=== PATIENT | female | born 1940 | race Caucasian/White ===

== ENCOUNTER 2021-12-01 06:53 | Day surgery (SDC) | payer MEDICARE, BC ==
--- NOTE | 2021-11-25 10:39 | HP ---
DATE OF SURGERY: 12/01/2021 HISTORY OF PRESENT ILLNESS: The patient presented with complaints of epigastric pain and gas. She stated that Prilosec helped a little bit. She stated that she has had some simethicone but then that gave her diarrhea. She complains of some bladder loss of control and some dribbling at times. The patient states the bowel habits have changed. Denies rectal bleeding. Complains of some front pelvic pain right greater than left. She complained of a hernia but no hernia was seen on exam. The patient has a history of hysterectomy and bladder repair, cholecystectomy and hiatal hernia. She had colonoscopy one year ago and had as she stated 20 polyps removed. PAST MEDICAL HISTORY: Thyroid disease, gastroesophageal reflux disease, depression, hyperlipidemia, heart disease, narcolepsy. PAST SURGICAL HISTORY: Tubal ligation. Appendectomy. Bladder repair. Hysterectomy. Cholecystectomy. Hiatal hernia. Bypass from neck to arm. ALLERGIES: VIOXX. CODEINE. LISINOPRIL. NEURONTIN. PLETAL. CLONIDINE. METFORMIN. MEDICATIONS: Levothyroxine, omeprazole, sertraline, amlodipine, atorvastatin, simethicone, FAMILY HISTORY: Heart disease, diabetes, cancer. SOCIAL HISTORY: Negative. REVIEW OF SYSTEMS: CONSTITUTIONAL: Denies fever or chills. CHEST: Denies shortness of breath. CVS: Denies chest pain. ABDOMEN: Reports low pelvic pain. PHYSICAL EXAMINATION: GENERAL: No acute distress. CHEST: Nonlabored. No shortness of breath. CVS: Regular rate and rhythm. ABDOMEN: Soft. IMPRESSION: Epigastric pain, gas, bladder incontinence, history of multiple polypectomies of the colon. PLAN: EGD, colonoscopy and vaginoscopy with Dr. Evelio Colin. As dictated by Ashly Faith NP.
[~2021-12-01 06:53] MED LIST: Lactated Ringers 1,000 ML IV SCH
[2021-12-01] MEDS ORDERED: Lactated Ringers 1,000 ML IV ONE (07:15)
[2021-12-01] MEDS ORDERED: DIPRIVAN 200 MG/20 ML IV ONE ×2 (09:42→10:00)
[2021-12-01] MEDS ORDERED: Xylocaine-Mpf 2% 5 Ml Vial ONE (09:42)
[2021-12-01 10:59] VITALS: PULSE 66
[2021-12-01 11:07] VITALS: BP 160/87; O2SAT 96
--- NOTE | 2021-12-01 11:32 | OP ---
SURGERY DATE/TIME: 12/01/2021 0943 PREOPERATIVE DIAGNOSES: 1) Epigastric pain. 2) Difficulty with bowel movements and bowel movement control. 3) Concern about possible rectovaginal fistula. 4) Concern about possible urinary incontinence also. POSTOPERATIVE DIAGNOSES: 1) Epigastric pain. 2) Difficulty with bowel movements and bowel movement control. 3) Concern about possible rectovaginal fistula. 4) Concern about possible urinary incontinence also. PROCEDURES: 1) EGD. 2) Colonoscopy. 3) Vaginoscopy. SURGEON: Evelio Colin M.D. ANESTHESIA: MAC. COMPLICATIONS: None. CONDITION: Stable. DESCRIPTION OF PROCEDURE: The patient was taken to endoscopy. Left lateral decubitus position. Scope introduced. Pharyngoesophageal junction normal. Esophagus normal down to gastroesophageal junction. The gastroesophageal junction was just a little distorted. It was inspected several times. There was a little bit of gastroesophageal reflux disease grade 2. On review of the chart, she had a previous fundoplasty some 20 years ago and this is certainly what is responsible. I think the wrap is still complete and there is no absolute hiatal hernia. Fundus, body and antrum normal. Pylorus normal. Duodenal bulb normal. Second portion normal. Scope withdrawn looped upon itself. No hiatal hernia from below. Scope withdrawn. Again, light irritation grade 2. The rest of the esophagus is normal. The scope is placed into the vagina. I did not see any pinhole perforations of vaginal cuff as the cuff was fairly short. It did not hold air very well. Anteriorly it is unclear what the status is. Posteriorly I did not get the sense of a tremendous rectocele. The scope was then introduced into the anal rectal area. It was advanced to the cecum. The cecum seems slightly distorted but it was present in the right lower quadrant and I saw nothing gross. Circumferential withdrawal redundant colon. Rectum and anus satisfactory. The patient tolerated the procedure satisfactory. We will see her back in the office to refield her complaints. I did not find much today on exam.
== END 2021-12-01 11:00 | disposition home or self-care (01) ==
LOC: SDC 06:53
PROVIDERS: ATTEND Surgery
DX: R10.13 Epigastric pain (principal); Z86.010 Personal history of colon polyps; R32 Unspecified urinary incontinence; R19.4 Change in bowel habit; Z79.899 Other long term (current) drug therapy; Z86.79 Personal history of other diseases of the circulatory system
CPT/HCPCS: 93005; 99100; J2704

== ENCOUNTER 2022-12-12 12:06 | Emergency (ER) | payer MEDICARE, BC ==
--- NOTE | 2022-12-12 12:59 | ERPHSYRPT ---
- History of Present Illness Source: patient, other (Daughter) Exam Limitations: no limitations Patient Subjective Stated Complaint: Pt states "I had a headache yesterday and some dizziness and it got a little better and now it hurts horribly." Triage Nursing Assessment: PT presented alert and oriented X 3, skin pwd. Pt ambulates with an upright steady gait, able to speak in clear full sentences pt in no apparent respiratory distress. Physician History: 82 yo WF w L retro-orbital headache x 1 day. pain is 8/10 and described as sharp/aching. Pt has a h/o headaches, but this one is a little worse. She has had nausea wo vomiting. Heat on her head and ice on her neck make the pain better. Pain is 8/10 on scale. Scotoma and blurry vision also reported. She denies focal weaknes/chest pain/dyspnea/fever/nuchal rigidity. Timing/Duration: yesterday Quality: burning, sharpness Head Pain Location: frontal (L retro-orbital) Severity of Pain-Max: severe Severity of Pain-Current: severe Recent Head Trauma: no recent headache/trauma, occasional headaches Modifying Factors: Improves With: cold therapy Associated Symptoms: scotoma, visual disturbance Previous symptoms: same symptoms as today Allergies/Adverse Reactions: cephalexin Allergy (Verified 12/01/21 07:59) cilostazol Allergy (Verified 12/01/21 07:59) clonidine Allergy (Verified 12/01/21 07:59) metoprolol Allergy (Verified 12/01/21 07:59) rofecoxib Allergy (Verified 12/01/21 07:59) carvedilol [From Coreg] Adverse Reaction (Verified 12/01/21 07:59) codeine Adverse Reaction (Verified 12/01/21 07:59) duloxetine Adverse Reaction (Verified 12/01/21 07:59) gabapentin Adverse Reaction (Verified 12/01/21 07:59) lisinopril Adverse Reaction (Verified 12/01/21 07:59) metformin Adverse Reaction (Verified 12/01/21 07:59) nifedipine Adverse Reaction (Verified 12/01/21 07:59) pilocarpine Adverse Reaction (Verified 12/01/21 07:59) solriamfetol [From Sunosi] Adverse Reaction (Verified 12/01/21 07:59) Home Medications: Amlodipine Besylate 5 mg [Norvasc 5 mg] 5 mg PO DAILY 11/24/21 [History] Atorvastatin Calcium [Lipitor 20MG Tablet] 20 mg PO DAILY 11/24/21 [History] Levothyroxine Sodium 100 Mcg [Synthroid 100 Mcg] 100 mcg PO DAILY 11/24/21 [History] Omeprazole Magnesium [Prilosec Otc] 40 mg PO DAILY 11/24/21 [History] Sertraline HCl 50 mg [Zoloft 50 mg Tablet] 50 mg PO DAILY 11/24/21 [History] Cholecalciferol (Vitamin D3) [Vitamin D] 1,000 unit PO DAILY 12/01/21 [History] Hx Tetanus, Diphtheria Vaccination/Date Given: No Hx Influenza Vaccination/Date Given: No Hx Pneumococcal Vaccination/Date Given: No Immunizations Up to Date: Yes Travel Risk - International Travel Have you traveled outside of the country in past 3 weeks: No - Coronavirus Screening Are you exhibiting any of the following symptoms?: Yes Symptoms: Headaches/Body Aches/Fatigue Close contact with a COVID-19 positive Pt in past 14-21 Days: No - Vaccine Status Have you recieved a Covid-19 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: [employer] - Vaccination Dates Date of 2cond Vaccination (if applicable): 2020 - Review of Systems Constitutional: No Symptoms Eyes: No Symptoms Ears, Nose, & Throat: No Symptoms Respiratory: No Symptoms Cardiac: No Symptoms Abdominal/Gastrointestinal: No Symptoms Genitourinary Symptoms: No Symptoms Musculoskeletal: No Symptoms Skin: No Symptoms Neurological: No Symptoms, Headache Psychological: No Symptoms Endocrine: No Symptoms Hematologic/Lymphatic: No Symptoms Immunological/Allergic: No Symptoms - Past Medical History Pertinent Past Medical History: Yes Neurological History: Migraines ENT History: No Pertinent History Cardiac History: Hypertension Respiratory History: No Pertinent History Endocrine Medical History: Hypothyroidism, Other Musculoskeletal History: Fibromyalgia, Rheumatoid Arthritis GI Medical History: No Pertinent History History: No Pertinent History Psycho-Social History: No Pertinent History Female Reproductive Disorders: No Pertinent History Other Medical History: PRE DIABETIC, DIASTOLIC HEART DISEASE, heart murmur, narcolepsy, touch of copd and asthma per pt - Past Surgical History Past Surgical History: Yes Neuro Surgical History: No Pertinent History Cardiac: No Pertinent History Respiratory: No Pertinent History Gastrointestinal: Appendectomy, Cholecystectomy Genitourinary: No Pertinent History Musculoskeletal: Joint Replacement Female Surgical History: Hysterectomy, Tubal Ligation Other Surgical History: bladder repair, bilat carpal tunnel - Social History Smoking Status: Former smoker Exposure to second hand smoke: Yes Drug Use: none Patient Lives Alone: Yes - Nursing Vital Signs Nursing Vital Signs: Initial Vital Signs Temperature 97.3 F 12/12/22 12:15 Pulse Rate 79 12/12/22 12:15 Respiratory Rate 20 12/12/22 12:15 Blood Pressure 166/90 12/12/22 12:15 O2 Sat by Pulse Oximetry 97 12/12/22 12:15 Pain Scale Pain Intensity 0 Hypertensive - Physical Exam General Appearance: no apparent distress Eye Exam: PERRL/EOMI, eyes nml inspection Ears, Nose, Throat Exam: normal ENT inspection, TMs normal, pharynx normal, moist mucous membranes Neck Exam: normal inspection, non-tender, supple, full range of motion, No meningismus, No Brudzinski, No Kernig's Respiratory Exam: normal breath sounds, lungs clear, airway intact, No respiratory distress Cardiovascular Exam: regular rate/rhythm, normal heart sounds, normal peripheral pulses, capillary refill <2 sec, No murmur Gastrointestinal/Abdominal Exam: soft, normal bowel sounds, No tenderness Back Exam: normal inspection, normal range of motion, No CVA tenderness, No vertebral tenderness Extremity Exam: normal inspection, normal range of motion Mental Status Exam: alert, oriented x 3, 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 Exam: PERRL, tongue midline Motor/Sensory Exam: no motor deficit, no sensory deficit, no pronator drift, neg ative Babinski's sign DTR Exam: bicep (R): 2+, bicep (L): 2+ Skin Exam: normal color, warm, dry Lymphatic Exam: No adenopathy SpO2 Interpretation: normal SpO2: 97 O2 Delivery: Room Air - Course EKG Interpreted by Me: RATE (NSR/Rate 60/Normal QT-QTc/No acute ST segment changes/Normal Twaves) - CT Exams Head CT Interpretation: Discussed w/radiologist (Remote Lacunar infarct, otherwise negative) Ordered Tests: Active Orders 24 hr Category Date Time Status EKG-ER Only STAT Care 12/12/22 15:02 Completed HEAD WITHOUT CONTRAST [CT] Stat Exams 12/12/22 12:53 Completed CBC W DIFF Stat Lab 12/12/22 12:30 Completed CMP Stat Lab 12/12/22 12:30 Completed PROTIME WITH INR Stat Lab 12/12/22 12:30 Completed PTT Stat Lab 12/12/22 12:30 Completed TROPONIN Q4H Lab 12/12/22 12:30 Completed Medication Summary Discontinued Medications Generic Name Dose Route Start Last Admin Trade Name Davidq PRN Reason Stop Dose Admin Hydromorphone HCl 0.5 mg 12/12/22 14:05 12/12/22 14:11 Hydromorphone 1 Mg/1ml Inj IV 12/12/22 14:06 0.5 mg STAT ONE Administration Hydromorphone HCl Confirm 12/12/22 14:10 Hydromorphone 1 Mg/1ml Inj Administered 12/12/22 14:11 Dose 1 mg .ROUTE .STK-MED ONE Hydromorphone HCl 1 mg 12/12/22 15:01 12/12/22 15:03 Hydromorphone 1 Mg/1ml Inj IV 12/12/22 15:02 1 mg STAT ONE Administration Hydromorphone HCl Confirm 12/12/22 15:03 Hydromorphone 1 Mg/1ml Inj Administered 12/12/22 15:04 Dose 1 mg .ROUTE .STK-MED ONE Prochlorperazine Edisylate 5 mg 12/12/22 14:06 12/12/22 14:11 Prochlorperazine Edisylate 10 Mg/2 Ml Vial IV 12/12/22 14:07 5 mg STAT ONE Administration Prochlorperazine Edisylate Confirm 12/12/22 14:10 Prochlorperazine Edisylate 10 Mg/2 Ml Vial Administered 12/12/22 14:11 Dose 10 mg .ROUTE .STK-MED ONE Sumatriptan Succinate 6 mg 12/12/22 13:33 12/12/22 13:36 Sumatriptan Succinate 6 Mg/0.5 Ml Vial SQ 12/12/22 13:34 6 mg STAT STA Administration Sumatriptan Succinate Confirm 12/12/22 13:35 Sumatriptan Succinate 6 Mg/0.5 Ml Vial Administered 12/12/22 13:36 Dose 6 mg SQ .STK-MED ONE Lab/Rad Data: Laboratory Result Diagrams 12/12/22 12:30 12/12/22 12:30 Laboratory Results 12/12/22 12/12/22 12/12/22 Range/Units 13:05 12:30 12:30 WBC (4.0-10.5) x10^3/uL RBC (4.1-5.4) x10^6/uL Hgb (12.0-16.0) g/dL Hct (35-47) % MCV (78-100) fL MCH (26-32) pg MCHC (32-36) g/dL RDW (11.5-14.0) % Plt Count (150-450) x10^3/uL MPV (7.5-11.0) fL Gran % (36.0-66.0) % Immature Gran % (Auto) (0.00-0.4) % Nucleat RBC Rel Count (0.00-0.1) % Eos # (Auto) (0-0.5) x10^3/uL Immature Gran # (Auto) (0.00-0.03) x10^3u/L Absolute Lymphs (auto) (1.0-4.6) x10^3/uL Absolute Monos (auto) (0.0-1.3) x10^3/uL Absolute Nucleated RBC (0.00-0.01) x10^3u/L Lymphocytes % (24.0-44.0) % Monocytes % (0.0-12.0) % Eosinophils % (0.00-5.0) % Basophils % (0.0-0.4) % Absolute Granulocytes (1.4-6.9) x10^3/uL Basophils # (0-0.4) x10^3/uL PT 10.3 (9.4-12.5) SECONDS INR 0.94 (0.8-3.0) APTT 27.1 (25.1-36.5) SECONDS Sodium (137-145) mmol/L Potassium (3.5-5.1) mmol/L Chloride (98-107) mmol/L Carbon Dioxide (22-30) mmol/L Anion Gap (5-15) MEQ/L BUN (7-17) mg/dL Creatinine (0.52-1.04) mg/dL Estimated GFR ML/MIN Glucose (74-106) mg/dL Calcium (8.4-10.2) mg/dL Total Bilirubin (0.2-1.3) mg/dL AST (14-36) U/L ALT (0-35) U/L Alkaline Phosphatase (38-126) U/L Troponin I < 0.012 (0.000-0.034) ng/mL Serum Total Protein (6.3-8.2) g/dL Albumin (3.5-5.0) g/dL Influenza Type A Ag NEGATIVE (NEGATIVE) Influenza Type B Ag NEGATIVE (NEGATIVE) RSV (PCR) NEGATIVE (NEGATIVE) SARS-CoV-2 (PCR) NEGATIVE (NEGATIVE) 12/12/22 12/12/22 Range/Units 12:30 12:30 WBC 11.0 H (4.0-10.5) x10^3/uL RBC 5.59 H (4.1-5.4) x10^6/uL Hgb 14.0 (12.0-16.0) g/dL Hct 46.7 (35-47) % MCV 83.5 (78-100) fL MCH 25.0 L (26-32) pg MCHC 30.0 L (32-36) g/dL RDW 15.5 H (11.5-14.0) % Plt Count 368 (150-450) x10^3/uL MPV 8.9 (7.5-11.0) fL Gran % 56.0 (36.0-66.0) % Immature Gran % (Auto) 0.6 H (0.00-0.4) % Nucleat RBC Rel Count 0.0 (0.00-0.1) % Eos # (Auto) 0.01 (0-0.5) x10^3/uL Immature Gran # (Auto) 0.07 H (0.00-0.03) x10^3u/L Absolute Lymphs (auto) 3.72 (1.0-4.6) x10^3/uL Absolute Monos (auto) 1.00 (0.0-1.3) x10^3/uL Absolute Nucleated RBC 0.00 (0.00-0.01) x10^3u/L Lymphocytes % 33.7 (24.0-44.0) % Monocytes % 9.1 (0.0-12.0) % Eosinophils % 0.1 (0.00-5.0) % Basophils % 0.5 (0.0-0.4) % Absolute Granulocytes 6.18 (1.4-6.9) x10^3/uL Basophils # 0.05 (0-0.4) x10^3/uL PT (9.4-12.5) SECONDS INR (0.8-3.0) APTT (25.1-36.5) SECONDS Sodium 140 (137-145) mmol/L Potassium 4.3 (3.5-5.1) mmol/L Chloride 99 (98-107) mmol/L Carbon Dioxide 30 (22-30) mmol/L Anion Gap 15.3 H (5-15) MEQ/L BUN 25 H (7-17) mg/dL Creatinine 0.79 (0.52-1.04) mg/dL Estimated GFR > 60.0 ML/MIN Glucose 89 (74-106) mg/dL Calcium 10.2 (8.4-10.2) mg/dL Total Bilirubin 0.50 (0.2-1.3) mg/dL AST 28 (14-36) U/L ALT 18 (0-35) U/L Alkaline Phosphatase 72 (38-126) U/L Troponin I (0.000-0.034) ng/mL Serum Total Protein 8.3 H (6.3-8.2) g/dL Albumin 4.8 (3.5-5.0) g/dL Influenza Type A Ag (NEGATIVE) Influenza Type B Ag (NEGATIVE) RSV (PCR) (NEGATIVE) SARS-CoV-2 (PCR) (NEGATIVE) - Progress Progress: improved Progress Note: 12/12/22 17:02 Nursing note and vital signs reviewed All lab results reviewed and shared w pt/friend Additional history per friend Ct result reviewed and shared w pt/friend 6mg sq Imitrex wo improvement in pain 0.5 IV dilaudid/6mg IV compazine wo improvement in pain Pt developed chest pain/abdominal pain after dilaudid/compazine/EKG wo acute changes/Troponin negative Additional 1mg IV Dilaudid w total relief w headache/chest pain Pt later stated that she has intermittant chest/abdominal pain for several years which is worse w drinking fluids. Pain totally resolved. Counseled pt/family regarding: lab results, diagnosis, need for follow-up, rad results - Departure Departure Disposition: Home Clinical Impression: Migraine headache Condition: Stable Critical Care Time: No Referrals: RAVIN KC DO [Primary Care Provider] - Follow up/PCP as directed Instructions: Headache, Adult (DC) Additional Instructions: Follow up with your family MD Return to ER for increasing pain/focal weakness/chest pain/dyspnea
--- NOTE | 2022-12-12 13:28 | XRAY ---
Indication: Headache. Blurry vision, dizziness, and nausea. Multiple contiguous axial images obtained through the head without contrast. Comparison: None Age-appropriate global atrophy. Remote lacunar infarct right external capsule. No acute intracranial hemorrhage, abnormal extra-axial fluid collection, or mass effect. Fourth ventricle is midline without hydrocephalus. Rodriguez-white matter differentiation preserved. Bony calvarium intact. Visualized paranasal sinuses and mastoid air cells are clear. Impression: Remote lacunar infarct right external capsule. Remaining CT head without contrast exam is negative.
[2022-12-12] MEDS ORDERED: Imitrex 6 MG/0.5 ML SQ STA (13:33)
[2022-12-12] MEDS ORDERED: Imitrex 6 MG/0.5 ML SQ ONE (13:35)
[2022-12-12 13:43] LABS: INFLUENZA A NEGATIVE (NEGATIVE); INFLUENZA B NEGATIVE (NEGATIVE); RESPIRATORY SYNCTIAL VIRUS NEGATIVE (NEGATIVE); SARS-CoV-2 Xpert Express NEGATIVE (NEGATIVE)
[2022-12-12] MEDS ORDERED: Hydromorphone 1 mg/ml Injection IV ONE ×2 (14:05→15:01)
[2022-12-12] MEDS ORDERED: Compazine 10 MG/2 ML IV ONE (14:06)
[2022-12-12] MEDS ORDERED: Compazine 10 MG/2 ML ONE (14:10)
[2022-12-12] MEDS ORDERED: Hydromorphone 1 mg/ml Injection ONE ×2 (14:10→15:03)
[2022-12-12 15:22] LABS: Absolute Neutrophil Ct (ANC) 6.18 x10^3/uL (1.4-6.9); BASOPHIL % 0.5 % (0.0-0.4); Basophil (Absolute #) 0.05 x10^3/uL (0-0.4); Eosinophil % 0.1 % (0.00-5.0); Eosinophil (Absolute #) 0.01 x10^3/uL (0-0.5); Hematocrit 46.7 % (35-47); IMMATURE GRAN # 0.07 x10^3u/L (0.00-0.03); IMMATURE GRAN % 0.6 % (0.00-0.4); Lymphocyte (Absolute #) 3.72 x10^3/uL (1.0-4.6); Lymphocytes % 33.7 % (24.0-44.0); Mean Cell Volume 83.5 fL (78-100); Mean Platelet Volume 8.9 fL (7.5-11.0); Monocytes % 9.1 % (0.0-12.0); Platelet Count 368 x10^3/uL (150-450); Red Blood Count 5.59 x10^6/uL (4.1-5.4); Red Cell Distribution Width 15.5 % (11.5-14.0)
[2022-12-12 15:33] LABS: INR 0.94 (0.8-3.0); PROTIME 10.3 SECONDS (9.4-12.5); PTT 27.1 SECONDS (25.1-36.5)
[2022-12-12 16:39] LABS: ALBUMIN 4.8 g/dL (3.5-5.0); ALKALINE PHOSPHATASE 72 U/L (38-126); ANION GAP 15.3 MEQ/L (5-15); BLOOD UREA NITROGEN 25 mg/dL (7-17); CHLORIDE 99 mmol/L (98-107); Calcium 10.2 mg/dL (8.4-10.2); Carbon Dioxide 30 mmol/L (22-30); Creatinine 1 0.79 mg/dL (0.52-1.04); EST GLOMERULAR FILTRATION RATE > 60.0 ML/MIN; Glucose 89 mg/dL (74-106); Potassium 4.3 mmol/L (3.5-5.1); SGOT/AST 28 U/L (14-36); SGPT/ALT 18 U/L (0-35); SODIUM 140 mmol/L (137-145); Total Protein 8.3 g/dL (6.3-8.2)
[2022-12-12 17:02] VITALS: BP 152/79; PULSE 79
[2022-12-12 17:07] VITALS: O2SAT 97
== END 2022-12-12 17:21 | disposition home or self-care (01) ==
LOC: ED 12:06
DX: G43.909 Migraine, unspecified, not intractable, without status migrainosus (principal); R07.9 Chest pain, unspecified; R11.0 Nausea; H53.459 Other localized visual field defect, unspecified eye; H53.8 Other visual disturbances; I10 Essential (primary) hypertension; Z79.899 Other long term (current) drug therapy; Z20.828 Contact with and (suspected) exposure to other viral communicable diseases; I51.89 Other ill-defined heart diseases
CPT/HCPCS: 0241U; 36000; 36415; 70450; 80053; 84484; 85025; 85610; 85730; 93005; 96372; 96374; 96375; 96376; 99284; J1170; J3030

== ENCOUNTER 2024-06-14 23:09 | Emergency (ER) | payer MEDICARE, BC ==
[2024-06-14 23:25] VITALS: TEMP 97.7
--- NOTE | 2024-06-14 23:45 | ERPHSYRPT ---
- History of Present Illness Time Seen by Provider: 06/14/24 23:43 Historian: patient Exam Limitations: no limitations Patient Subjective Stated Complaint: pt states she had dinner tonight around 1700 and started having abd pain since. nausea with no vomiting Triage Nursing Assessment: pt presents to ED via scat 1, pt alert and oriented x3, skin pwd, pt c/o abd pain since 1700 after pt ate dinner, pt has nausea but no vomititng and denies diarrhea, afebrile, bowel sounds hyperactive in R upper and lower quadrants. Physician History: Patient has some abdominal pain. It is cramping. She said she is get this this occasionally actually quite frequently after she eats. She had a hiatal hernia surgery about 3 years ago. She had just finished eating and she got some abdominal pain. She said she was also nauseated. She cannot throw up because of her surgery. They gave her some nausea medicine in the ambulance and it helped quite a bit. The pain was in the epigastric area. It is resolved now almost completely. She has had no fever or chills. She has had no diarrhea or anything like that. Nothing makes symptoms better eating seems to make it worse. Abdominal Pain Onset Location: epigastric Pain Radiation: no radiation Modifying Factors: Improves With: nothing Associated Symptoms: denies symptoms Allergies/Adverse Reactions: cephalexin Allergy (Verified 12/01/21 07:59) cilostazol Allergy (Verified 12/01/21 07:59) clonidine Allergy (Verified 06/14/24 23:14) metoprolol Allergy (Verified 06/14/24 23:14) rofecoxib Allergy (Verified 06/14/24 23:14) carvedilol [From Coreg] Adverse Reaction (Verified 06/14/24 23:14) codeine Adverse Reaction (Verified 06/14/24 23:14) duloxetine Adverse Reaction (Verified 06/14/24 23:14) gabapentin Adverse Reaction (Verified 06/14/24 23:14) lisinopril Adverse Reaction (Verified 06/14/24 23:14) metformin Adverse Reaction (Verified 06/14/24 23:14) nifedipine Adverse Reaction (Verified 06/14/24 23:14) pilocarpine Adverse Reaction (Verified 06/14/24 23:14) solriamfetol [From Sunosi] Adverse Reaction (Verified 06/14/24 23:14) Home Medications: Amlodipine Besylate 5 mg [Norvasc 5 mg] 5 mg PO DAILY 11/24/21 [History] Atorvastatin Calcium [Lipitor 20MG Tablet] 20 mg PO DAILY 11/24/21 [History] Levothyroxine Sodium 100 Mcg [Synthroid 100 Mcg] 100 mcg PO DAILY 11/24/21 [History] Omeprazole Magnesium [Prilosec Otc] 40 mg PO DAILY 11/24/21 [History] Sertraline HCl 50 mg [Zoloft 50 mg Tablet] 50 mg PO DAILY 11/24/21 [History] Cholecalciferol (Vitamin D3) [Vitamin D] 1,000 unit PO DAILY 12/01/21 [History] Hx Tetanus, Diphtheria Vaccination/Date Given: Yes Hx Influenza Vaccination/Date Given: No Hx Pneumococcal Vaccination/Date Given: Yes Travel Risk - International Travel Have you traveled outside of the country in past 3 weeks: No - Emerging Infectious Disease Are you exhibiting symptoms associated with any current EIDs: Yes Symptoms: Abdominal Pain - Review of Systems Constitutional: No Symptoms Eyes: No Symptoms Ears, Nose, & Throat: No Symptoms Respiratory: No Symptoms Abdominal/Gastrointestinal: Abdominal Pain, Nausea Genitourinary Symptoms: No Symptoms Musculoskeletal: No Symptoms - Past Medical History Pertinent Past Medical History: Yes Neurological History: Migraines ENT History: No Pertinent History Cardiac History: High Cholesterol, Hypertension Respiratory History: No Pertinent History Endocrine Medical History: Hypothyroidism, Other Musculoskeletal History: Fibromyalgia, Rheumatoid Arthritis GI Medical History: No Pertinent History, Hernia History: No Pertinent History Psycho-Social History: No Pertinent History Female Reproductive Disorders: No Pertinent History Other Medical History: PRE DIABETIC, DIASTOLIC HEART DISEASE, heart murmur, narcolepsy, touch of copd and asthma per pt - Past Surgical History Past Surgical History: Yes Neuro Surgical History: No Pertinent History Cardiac: No Pertinent History Respiratory: No Pertinent History Gastrointestinal: Appendectomy, Cholecystectomy, Hernia Repair Genitourinary: No Pertinent History Musculoskeletal: Joint Replacement Female Surgical History: Hysterectomy, Tubal Ligation Other Surgical History: bladder repair, bilat carpal tunnel, R clavicle, bypass on L carotid - Social History Smoking Status: Former smoker Exposure to second hand smoke: No Drug Use: none Patient Lives Alone: Yes - Social Determinants of Health Will the patient participate in the screening: Yes Do you worry about a steady place to live?: No Do you have any problems with any of the following?: No known problems In the past 12 months,have you had to go without utilities?: No Transportation Issues: No Has anyone in your support network made you feel unsafe?: No Have you or anyone in your house had to go without enough: No - Nursing Vital Signs Nursing Vital Signs: Initial Vital Signs Temperature 97.7 F 06/14/24 23:17 Pulse Rate 85 06/14/24 23:17 Respiratory Rate 18 06/14/24 23:17 Blood Pressure 151/81 06/14/24 23:17 O2 Sat by Pulse Oximetry 96 06/14/24 23:17 Pain Scale Pain Intensity 5 - Physical Exam General Appearance: no apparent distress Respiratory Exam: normal breath sounds Cardiovascular Exam: regular rate/rhythm Gastrointestinal/Abdomen Exam: soft, normal bowel sounds, No tenderness, No distention Extremity Exam: normal inspection, normal range of motion Neurologic Exam: alert, oriented x 3, cooperative Skin Exam: normal color SpO2: 96 Ordered Tests: Active Orders 24 hr Category Date Time Status ABDOMEN 2 VIEW Stat Exams 06/14/24 23:58 Taken - Progress Progress: improved Progress Note: 06/15/24 01:22 X-ray of done of her abdomen. It is a 2 view. I did not see any worrisome findings on it. Her pain has resolved. I think that it may have just been s econdary to some cramping probably because of her hiatal hernia surgery. She has had episodes like this happen in the past this and was just worse. The symptoms have basically resolved. I think she stable to go home. On the differential was esophageal spasm, gastritis, obstruction. Medical Desision Making - Diagnostic Testing Diagnostic test were ordered, analyzed, and reviewed by me: Yes Radiological Interpretation: Interpreted by me - Risk of complications Minimal Risk: Minimal risk of morbidity - Departure Departure Disposition: Home Clinical Impression: Abdominal pain Condition: Stable Critical Care Time: No Referrals: JENNY SANTAMARIA DO [Primary Care Provider] - Follow up/PCP as directed Instructions: Severe Abdominal Pain, Adult (DC)
[2024-06-15 01:38] VITALS: RESP 17; O2SAT 98
[2024-06-15 02:21] VITALS: BP 120/85; PULSE 85
--- NOTE | 2024-06-15 07:24 | XRAY ---
Indication: Abdominal pain. Comparison: None 2 view abdomen nonacute and nonobstructed with mild scattered colonic debris and previous cholecystectomy. Solid organs unremarkable. Osseous structures intact with osteopenia, mild/moderate degenerative changes throughout spine, and mild levoscoliosis centered at L2.
== END 2024-06-15 02:15 | disposition home or self-care (01) ==
LOC: ED 23:09
DX: R10.13 Epigastric pain (principal); R11.0 Nausea; E78.5 Hyperlipidemia, unspecified; I10 Essential (primary) hypertension; Z79.899 Other long term (current) drug therapy
CPT/HCPCS: 74021; 99283